=== PATIENT | male | born 1995 | race Caucasian/White ===

== ENCOUNTER 2016-12-13 06:18 | Emergency (ER) | payer BC ==
[~2016-12-13] VITALS: Ht 177.8 cm; Wt 83.9 kg
[2016-12-13 06:23] VITALS: TEMP 37.2; Ht 177.8 cm; Wt 83.9 kg
[2016-12-13] MEDS ORDERED: CLINDAMYCIN IV 900 MG in DEXTROSE 5% ADD-VANTAGE 100ML 100 ML IV ONE (07:00)
[2016-12-13] MEDS ORDERED: OPTIRAY 320 IV PRN (07:30)
--- NOTE | 2016-12-13 07:51 | DIAGNOSTIC IMAGING REPORT ---
CT maxillofacial region FACIAL-MAXILLOFACIAL WITH CLINICAL HISTORY: swelling right lateral jaw/mandible area, under right ear pain. Edema. TECHNIQUE: Transaxial acquisition with multi axial reformatted images. COMPARISON STUDY: 08/28/2016 FINDINGS: Generalized cellulitis extending from the soft tissues anterior to the right external auditory canal inferiorly to the right submandibular region. Possible mild secondary sialoadenitis involving the inferior right parotid gland. Osseous structures appear to be intact. Moderate mucosal thickening of the ethmoid and maxillary sinuses. No bony destructive process. No evidence for drainable abscess or collection. Mild reactive cervical adenitis. IMPRESSION: 1. Moderate cellulitis of the subcutaneous tissues and fascial planes of the right lateral facial region extending from the right external auditory canal to the level of the right submandibular region. 2. Possible mild secondary sialoadenitis involving the inferior right parotid gland. 3. No evidence for a drainable abscess or collection. 4. Moderate chronic sinus change. Electronically signed by: Deshaun Londono M.D. 12/13/2016 7:49 AM Dictated Date/Time: 12/13/2016 7:45 AM
[2016-12-13] MEDS ORDERED: OXYCODONE/ACETAMINOPHEN 5-325 TAB PO ONE (08:30)
[2016-12-13] MEDS ORDERED: CLIN300C2 PO (08:39)
[2016-12-13] MEDS ORDERED: OXYC-57 PO (08:39)
--- NOTE | 2016-12-13 08:41 | EMERGENCY ROOM VISIT NOTE ---
History Report prepared by Barrie: Naeem Garcia Under the Supervision of: Dr. José Miguel Powers D.O. First contact with patient: 06:56 Chief Complaint: SINUS CONGESTION/PRESSURE Stated Complaint: SINUS PRESSURE,SWOLLEN JAW,COUGHING Nursing Triage Summary: yesterday had sinus congestion. took allergy medication. today woke with R side of his jaw swollen. History of Present Illness The patient is a 21 year old male who presents to the Emergency Room with complaints of persistent sinus pressure beginning yesterday. He notes this morning he woke up with a swollen jaw. He adds that he has been weak and achy, and admits to having a mild fever of around 99, cough, and ear pain. He denies having any dental pain. The patient reports worsening of his pain upon opening his mouth. Source of History: patient Onset: yesterday Position: other (sinuses) Quality: ache, pressure Timing: other (persistent) Associated Symptoms: + cough, + fevers (mild; 99), + weakness Note: The patient reports having a swollen jaw worsening with opening his mouth, and ear pain. The patient denies having dental pain. Review of Systems See HPI for pertinent positives & negatives. A total of 10 systems reviewed and were otherwise negative. Past Medical & Surgical Medical Problems: (1) Alcohol intoxication Family History Patient reports no known family medical history. Social History Smoking Status: Never Smoker Alcohol Use: occasionally Drug Use: none Occupation Status: [employer] student Current/Historical Medications Scheduled Clindamycin Hcl (Cleocin), 300 MG PO QID Scheduled PRN Oxycodone/Acetaminophen 5MG/325MG (Percocet 5MG/325MG), 1 TAB PO Q6H PRN for Pain Allergies Coded Allergies: Penicillins (Verified Allergy, Intermediate, rash, 12/13/16) Sulfa Antibiotics (Verified Allergy, Unknown, rash, 12/13/16) Physical Exam Vital Signs Date Time Temp Pulse Resp B/P Pulse Ox O2 Delivery O2 Flow Rate FiO2 12/13/16 08:12 104 140/85 97 Room Air 12/13/16 06:23 37.2 101 20 142/88 95 Room Air Physical Exam CONSTITUTIONAL/VITAL SIGNS: Reviewed / noted above. GENERAL: Non-toxic in appearance. INTEGUMENTARY: Warm, dry, and [place]. HEAD: Normocephalic. Swelling to the right lateral mandibular area inferior to the right ear. EYES: without scleral icterus or trauma. ENT/OROPHARYNX: clear and moist. LYMPHADENOPATHY/NECK: Is supple without lymphadenopathy or meningismus. RESPIRATORY: Lungs clear and equal. CARDIOVASCULAR: Regular rate and rhythm. GI/ABDOMEN: Soft and nontender. No organomegaly or pulsatile mass. No rebound or guarding. Normal bowel sounds. EXTREMITIES: Warm and well perfused. BACK: No CVA tenderness. NEUROLOGICAL: Intact without focal deficits. PSYCHIATRIC: normal affect. MUSCULOSKELETAL: Normally developed with good muscle tone. Medical Decision & Procedures ER Provider Diagnostic Interpretation: CT results as stated below per my review and radiologist interpretation: CT maxillofacial region FACIAL-MAXILLOFACIAL WITH FINDINGS: Generalized cellulitis extending from the soft tissues anterior to the right external auditory canal inferiorly to the right submandibular region. Possible mild secondary sialoadenitis involving the inferior right parotid gland. Osseous structures appear to be intact. Moderate mucosal thickening of the ethmoid and maxillary sinuses. No bony destructive process. No evidence for drainable abscess or collection. Mild reactive cervical adenitis. IMPRESSION: 1. Moderate cellulitis of the subcutaneous tissues and fascial planes of the right lateral facial region extending from the right external auditory canal to the level of the right submandibular region. 2. Possible mild secondary sialoadenitis involving the inferior right parotid gland. 3. No evidence for a drainable abscess or collection. 4. Moderate chronic sinus change. Electronically signed by: Deshaun Londono M.D. 12/13/2016 7:49 AM Dictated Date/Time: 12/13/2016 7:45 AM Medications Administered Medications (Trade) Dose Ordered Sig/Moe Route Start Time Stop Time Status Last Admin Dose Admin Clindamycin Phosphate/Dextrose (Cleocin Iv/ Dextrose Add-[place] 100ML) 106 ml @ 100 mls/hr ONE ONCE IV 12/13/16 07:00 12/13/16 08:03 DC 12/13/16 07:26 100 MLS/HR Oxycodone/ Acetaminophen (Percocet 5-325mg Tab) 1 tab NOW ONCE PO 12/13/16 08:30 12/13/16 08:31 DC 12/13/16 08:42 1 TAB ED Course 0657: Previous medical records were reviewed. The patient was evaluated in room A2. A complete history and physical examination was performed. 0700: Ordered Clindamycin Phosphate 900 mg/Dextrose 106 ml @ 100 mls/hr IV. 0830: Ordered Oxycodone/Acetaminophen 1 tab PO. 0840: On reevaluation, the patient is doing well. I discussed the results and findings with the patient. He verbalized agreement of the treatment plan. The patient was discharged home. Medical Decision Differential diagnosis: Etiologies such as cellulitis, abscess, MRSA infection, DVT, necrotizing fasciitis, dermatitis, drug eruption, as well as others were entertained.. This is a 21-year-old male who presents to the ED with a chief complaint of swelling to the right facial region. The patient symptoms started this morning. He states that he has had some upper respiratory infection symptoms over the past few days. His vital signs are stable. He is afebrile. He has some tenderness and swelling to the right facial region in the area just inferior to the right ear and lateral jaw. There is minimal erythema. Intraorally there is no obvious abnormalities. His dentition is intact. He denies any dental symptoms. Denies any difficulty swallowing or trouble breathing. Right external auditory canal is clear. CT scan suggests moderate cellulitis of the subcutaneous tissues and fascial planes of the right lateral face. The patient was given clindamycin IV. He was given a Percocet for pain. He'll be discharged on clindamycin and given a prescription for Percocet for pain. Follow-up in 1-2 days for recheck. Impression Primary Impression: Cellulitis, face Scribe Attestation The scribe's documentation has been prepared under my direction and personally reviewed by me in its entirety. I confirm that the note above accurately reflects all work, treatment, procedures, and medical decision making performed by me. Departure Information Dispostion Home / Self-Care Prescriptions Oxycodone/Acetaminophen 5MG/325MG (PERCOCET 5MG/325MG) Tab 1 TAB PO Q6H Y for Pain, #10 TAB Prov: José Miguel Powers D.O. 12/13/16 Clindamycin Hcl (CLEOCIN) 300 Mg Cap 300 MG PO QID, #40 CAP Prov: José Miguel Powers D.O. 12/13/16 Referrals No Doctor, Assigned (PCP) Patient Instructions Cellulitis Mi, My [facility] Additional Instructions Clindamycin as prescribed. Follow-up with your doctor for recheck in 1-2 days. Return for worsening. Percocet as prescribed. No driving within 6 hours of use. Do not take additional Tylenol while taking Percocet.
[2016-12-13 08:54] VITALS: BP 142/84; PULSE 86; O2SAT 99
[2016-12-16] MEDS ORDERED: OXYC-57 PO (12:07)
[2016-12-16] MEDS ORDERED: CLIN300C2 PO (12:07)
== END 2016-12-13 08:55 | disposition home or self-care (01) ==
LOC: C.EDB 06:20 → C.EDA 08:55
DX: L03.211 Cellulitis of face (principal)

== ENCOUNTER 2016-12-15 09:25 | Inpatient (IN) | payer BC ==
[~2016-12-15] VITALS: Ht 177.8 cm; Wt 82.1 kg
[~2016-12-15 09:25] MED LIST: CLIN300C2 PO; OXYC-57 PO
[2016-12-15] MEDS ORDERED: ONDANSETRON INJ 2 MG/ML 2 ML VIAL IV STA (10:35)
[2016-12-15] MEDS ORDERED: MoRPHine SULFATE 4 MG/ML 1 ML CARP\\VIAL IV STA (10:35)
[2016-12-15] MEDS ORDERED: SODIUM CHLORIDE 0.9% 1000ML 1,000 ML IV STA (10:37)
[2016-12-15] MEDS ORDERED: CLINDAMYCIN IV 900 MG in DEXTROSE 5% ADD-VANTAGE 100ML 100 ML IV ONE (11:00)
[2016-12-15 11:22] LABS: BASO % 0.6 %; BASO ABS # 0.03 K/uL (0-0.2); COMPLETE YES; EOS % 1.5 %; HEMATOCRIT 44.1 % (42-52); IG% 0.2 %; LYMPH % 27.4 %; LYMPH ABS # 1.32 K/uL (1.2-3.4); MEAN CELL VOLUME 90.2 fL (80-100); MEAN CORPUSCULAR HEMOGLOBIN 31.7 pg (25-34); MEAN CORPUSCULAR HGB CONC 35.1 g/dl (32-36); MEAN PLATELET VOLUME 9.9 fL (7.4-10.4); MONO % 18.5 %; NEUT % 51.8 %; PLATELET COUNT 194 K/uL (130-400); RED BLOOD COUNT 4.89 M/uL (4.7-6.1); WHITE BLOOD COUNT 4.81 K/uL (4.8-10.8)
[2016-12-15 11:42] LABS: BUN/CREATININE RATIO 9.4 (10-20); CALCIUM 8.8 mg/dl (8.5-10.1); CREATININE 0.86 mg/dl (0.60-1.40); POTASSIUM 4.4 mmol/L (3.5-5.1)
[2016-12-15] MEDS ORDERED: MoRPHine SULFATE 2 MG/ML CARP IV PRN (12:15)
[2016-12-15] MEDS ORDERED: ONDANSETRON INJ 2 MG/ML 2 ML VIAL IV PRN (12:15)
[2016-12-15] MEDS ORDERED: MoRPHine SULFATE 4 MG/ML 1 ML CARP\\VIAL IV PRN (12:15)
[2016-12-15 12:26] VITALS: O2SAT 98
[2016-12-15] MEDS ORDERED: ACETAMINOPHEN 500 MG TAB PO PRN (12:30)
[2016-12-15 13:20] VITALS: BP 145/83; PULSE 63; TEMP 36.8; O2SAT 96
--- NOTE | 2016-12-15 13:27 | HISTORY & PHYSICAL EXAMINATION ---
DATE OF ADMISSION: 12/15/2016 CHIEF COMPLAINT: Facial pain. ADMITTING DIAGNOSIS: Facial cellulitis, failing outpatient treatment. 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 The patient feels it originated in his right maxillary sinus. The patient presented to the ER. At that point in time, he underwent a CT scan of his face facial cellulitis. Because of allergies to penicillin and sulfa which are significant skin reactions requiring ER visits, the patient was begun on oral clindamycin. Despite being on oral clindamycin, his swelling, pain and tenderness progressed, he represented tonight. Reportedly, the Emergency Room physician, Dr. Clinton Cisneros contacted Dr. Geovanny Maki, an ENT on-call who felt that patient should be admitted to the facility, continued on IV antibiotics and believe clindamycin is an appropriate choice. After that discussion, hospitalists were called and we recommended to admit the patient. On my evaluation, the patient is in mild distress with some facial pain. He is however able to talk, guard his airway. He has no stridorous voice, no hot potato mouth voice and is able to swallow his own saliva without difficulty. PAST MEDICAL HISTORY: The patient really has no significant past medical history. He was in the ER at one point in the distant past for alcohol related. DAILY MEDICATIONS: None. ALLERGIES: MENTIONED, PENICILLIN AND SULFA. SOCIAL HISTORY: Does not smoke at all. He drinks occasionally. 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 FAMILY HISTORY: Positive for malignancies in his grandparents. He is not exactly sure of the exact kind. MEDICATIONS: As mentioned, daily medications are none. His only medication was recently prescribed clindamycin 300 q.i.d. with p.r.n. Percocet for pain. REVIEW OF SYSTEMS: Ten systems are reviewed and are negative with the exception of his facial pain listed to be 8/10, listed to be pressure and also sharp, radiating to his lower ear and along his jaw. He does have difficulty opening his mouth widely. Nothing makes the pain get better or worse. Other than that, 10 systems are reviewed and are negative. PHYSICAL EXAMINATION: VITAL SIGNS: Completely stable. Afebrile at 36.7, pulse 60, respirations 16, BP 145/100 which is slightly high but he is anxious. Oxygen sats 96. HEENT: PERRL, EOMI. His oropharynx, I see no evidence of dental caries, periodontal disease or evidence of any type of issue around his parotid duct. His left face has swelling, it is not erythematous. It has firmness to it, it is not warm. His TMs are equal bilaterally without remark. His nasal mucosa is boggy and indurated. His right maxillary sinus is tender to percussion. NECK: Without lymphadenopathy, JVD. Trachea is midline. No stridor. HEART: Regular without murmurs, clicks, rubs or gallops. LUNGS: Clear without wheezes or crackles. Good air movement. ABDOMEN: Normoactive bowel sounds, soft, nontender, nondistended. EXTREMITIES: Without cyanosis, clubbing or edema. NEUROLOGICAL: Awake, alert and appropriate. Cranial nerves II-XII are intact. Equal symmetrical strength and sensation. SKIN: Without lesions, growth, bruises or bleeding nor any significant redness over the affected area. LABORATORY DATA: As mentioned, has a white count of 4.8, H\T\H is 15 and 44, platelet count is normal. BUN and creatinine of 8 and 0.86. He has a CT scan from the 5th which showed facial cellulitis with nondrainable fluid collection. ASSESSMENT: A 21-year-old male, here with a facial cellulitis, failing outpatient treatment. PLAN: Because of patient's allergies, he will be maintained on intravenous clindamycin at high dose. ENT consult and he will be evaluated in case any further imaging study is warranted. Of course, alternatives in addition to this would be parotid gland concretion or obstruction, nothing is mentioned except some sialoadenitis of the right parotid gland. There is no evidence of any concretion seen. Pain control will be via parenteral opiates. DVT prevention is ambulation. MTDD
[2016-12-15] MEDS: SODIUM CHLORIDE 0.9% 1000ML 1,000 ML IV SCH ×2 (14:19→23:51)
[2016-12-15] MEDS: OXYCODONE HCL IR 5 MG TAB (IMMEDIATE RELEASE) PO PRN ×2 (14:33→20:01)
[2016-12-15 14:37] VITALS: Ht 177.8 cm; Wt 82.1 kg
--- NOTE | 2016-12-15 17:20 | EMERGENCY ROOM VISIT NOTE ---
History Report prepared by Barrie: Elvia Delgadillo Under the Supervision of: Dr. Clinton Cisneros M.D. First contact with patient: 10:23 Chief Complaint: INFECTION Stated Complaint: INFECTION IN JAW/GLAND-NOT GETTING BETTER Nursing Triage Summary: See triage note History of Present Illness The patient is a 21 year old male who presents to the Emergency Room with complaints of persistent, worsening right facial swelling and pain that began Wednesday. He currently rates his discomfort as an 8/10 in severity. The patient states that Wednesday he noticed sinus pressure. He states that Wednesday morning he noticed the swelling to his right jaw and states that by Wednesday morning it was much worse. The patient states that he was evaluated in the emergency department and after several tests he was placed on Clindamycin for the infection and Percocet for his pain. He states that his pain and edema has worsened and states that he is now in excruciating pain. The patient states that he feels the edema spreading down further and states that the area feels harder. He states that the edema has increased by approximately 50%. The patient states that he does not currently have a PCP noting that he is a student. He states that he notices his pain is worse in the morning after lying flat all night. The patient states that he ran out of Percocet yesterday. He denies any active medical problems. The patient denies any rash , fever, chest pain, abdominal pain, or vomiting. Source of History: patient Onset: Wednesday Position: other (facial) Symptom Intensity: 8/10 Quality: other (swelling) Timing: worsening, other (persistent) Associated Symptoms: No abdominal pain, No chest pain, No fevers, No rash, No vomiting Review of Systems See HPI for pertinent positives & negatives. A total of 10 systems reviewed and were otherwise negative. Past Medical & Surgical Medical Problems: (1) Alcohol intoxication (2) facial cellulitis failing outpt therapy Family History Cancer Social History Smoking Status: Never Smoker Alcohol Use: occasionally Drug Use: none Occupation Status: [employer] student Current/Historical Medications Scheduled Clindamycin Hcl (Cleocin), 300 MG PO QID Allergies Coded Allergies: Penicillins (Verified Allergy, Intermediate, rash, 12/15/16) Sulfa Antibiotics (Verified Allergy, Unknown, rash, 12/15/16) Physical Exam Vital Signs Date Time Temp Pulse Resp B/P Pulse Ox O2 Delivery O2 Flow Rate FiO2 12/15/16 09:27 36.7 60 16 145/101 96 Room Air Physical Exam Constitutional: Vital signs reviewed. Eyes: Pupils are equal round reactive to light. Conjunctiva are noninjected. ENT: Diffuse swelling to the right side of his lower jaw. No signs of otitis media or maxillary sinus tenderness. No induration or fluctuance. No submandibular swelling or firmness. No elevation of tongue, truisms, or peritonsillar abscess. No percussion tenderness to the upper or lower teeth on the right side. Mucous membranes are moist. Respiratory: Clear to auscultation bilaterally. Breath sounds are equal bilaterally. Cardiovascular: Regular rate and rhythm. No rubs or gallops. GI: Soft, nondistended and nontender. Bowel sounds are present. Musculoskeletal: No peripheral edema. Integumentary: As above. Neurological: The patient is awake and alert. No focal deficits. Psychiatric: Normal affect. Medical Decision & Procedures Laboratory Results 12/15/16 11:00 Red Blood Count 4.89, Mean Corpuscular Volume 90.2, Mean Corpuscular Hemoglobin 31.7, Mean Corpuscular Hemoglobin Concent 35.1, Mean Platelet Volume 9.9, Neutrophils (%) (Auto) 51.8, Lymphocytes (%) (Auto) 27.4, Monocytes (%) (Auto) 18.5, Eosinophils (%) (Auto) 1.5, Basophils (%) (Auto) 0.6, Neutrophils # (Auto ) 2.49, Lymphocytes # (Auto) 1.32, Monocytes # (Auto) 0.89, Eosinophils # (Auto ) 0.07, Basophils # (Auto) 0.03 12/15/16 11:00 Test 12/15/16 11:00 White Blood Count 4.81 K/uL (4.8-10.8) Red Blood Count 4.89 M/uL (4.7-6.1) Hemoglobin 15.5 g/dL (14.0-18.0) Hematocrit 44.1 % (42-52) Mean Corpuscular Volume 90.2 fL (80-100) Mean Corpuscular Hemoglobin 31.7 pg (25-34) Mean Corpuscular Hemoglobin Concent 35.1 g/dl (32-36) Platelet Count 194 K/uL (130-400) Mean Platelet Volume 9.9 fL (7.4-10.4) Neutrophils (%) (Auto) 51.8 % Lymphocytes (%) (Auto) 27.4 % Monocytes (%) (Auto) 18.5 % Eosinophils (%) (Auto) 1.5 % Basophils (%) (Auto) 0.6 % Neutrophils # (Auto) 2.49 K/uL (1.4-6.5) Lymphocytes # (Auto) 1.32 K/uL (1.2-3.4) Monocytes # (Auto) 0.89 K/uL (0.11-0.59) Eosinophils # (Auto) 0.07 K/uL (0-0.5) Basophils # (Auto) 0.03 K/uL (0-0.2) RDW Standard Deviation 42.1 fL (36.4-46.3) RDW Coefficient of Variation 13.0 % (11.5-14.5) Immature Granulocyte % (Auto) 0.2 % Immature Granulocyte # (Auto) 0.01 K/uL (0.00-0.02) Anion Gap 7.0 mmol/L (3-11) Est Creatinine Clear Calc Drug Dose 139.1 ml/min Estimated GFR () 142.7 Estimated GFR (Non- 123.1 BUN/Creatinine Ratio 9.4 (10-20) Calcium Level 8.8 mg/dl (8.5-10.1) Laboratory results as reviewed by me. Medications Administered Medications (Trade) Dose Ordered Sig/Moe Route Start Time Stop Time Status Last Admin Dose Admin Morphine Sulfate (MoRPHine SULFATE INJ) 4 mg NOW STAT IV 12/15/16 10:35 12/15/16 10:37 DC 12/15/16 11:22 4 MG Ondansetron HCl 4 mg 4 mg NOW STAT IV 12/15/16 10:35 12/15/16 10:37 DC 12/15/16 11:22 4 MG Sodium Chloride 1,000 ml @ 999 mls/hr Q1H1M STAT IV 12/15/16 10:37 12/15/16 11:37 DC 12/15/16 11:21 999 MLS/HR Clindamycin Phosphate/Dextrose (Cleocin Iv/ Dextrose Add-[place] 100ML) 106 ml @ 100 mls/hr ONE ONCE IV 12/15/16 11:00 12/15/16 12:03 DC 12/15/16 11:21 100 MLS/HR Oxycodone HCl 10 mg 10 mg Q6 PRN PO 12/15/16 12:15 12/29/16 12:14 12/15/16 14:33 10 MG Sodium Chloride (Nss 1000ml) 1,000 ml @ 100 mls/hr Q10H IV 12/15/16 12:15 01/14/17 12:14 12/15/16 14:19 100 MLS/HR ED Course 1027: The patient was evaluated in room C8. A complete history and physical exam was performed. 1035: Ordered Zofran Inj 4 mg IV, Morphine Sulfate 4 mg IV. 1037: Ordered Sodium Chloride 1000 ml @ 999 mls/hr IV. 1049: I discussed the patients case with Dr. Maki, ENT. He agrees with admission and IV antibiotics. He would suggest Clindamycin at high dose and get ID involved. 1100: Ordered Clindamycin Phosphate 900 mg/Dextrose 106 ml @ 100 mls/hr IV. 1102: I reevaluated the patient and he is doing well. I discussed the treatment plan with him and he verbalized complete understanding and agreement. He will be evaluated for further treatment. 1152: I discussed the patients case with Dr. Stevens [facility]. He is going to evaluate the patient for further treatment. Medical Decision This is a 21-year-old male presents with facial pain and swelling. Differential diagnosis includes facial cellulitis, sialadenitis, sialolithiasis , abscess, dental abscess, Guero angina. I did perform a limited focused review of portions of the patient's old chart on the electronic medical record. The patient was seen here on the for facial pain and swelling. He had a CT scan which showed moderate cellulitis of the subq tissue and facial planes of the right face extending into the right external auditory canal to the level of the right submandibular region. Also possible mild secondary parotitis. I did evaluate the patient as noted above. The patient is presenting with worsening symptoms since his CT scan here 2 days ago. On examination he does not appear to have any signs of periapical abscess or dental injury. He denies having any dental pain. He has no submental pain or tenderness or elevation of the tongue to suggest Guero angina. He has no signs of peritonsillar abscess. IV access was established. IV blood cultures were obtained.I did order and review the patient's blood work as noted in the electronic medical record. I did discuss the case with Dr. Maki of ENT. He agreed with plan for hospitalization and recommended high-dose clindamycin and ID consultation. I did discuss case with the hospitalist and social work case manager. The patient was given clindamycin 900 mg IV. He was also given morphine and Zofran for pain. Consults Time Called: 1048 Consulting Physician: WAYNE Bernabe Returned Call: [phone] I discussed the patients case with WAYNE Bernabe. He agrees with admission and IV antibiotics. He would suggest Clindamycin at high dose and get ID involved. Additional Consults: Time Called: 1151 Consulted Physician: CAR Vaca Returned Call: [phone] Additional Comments: I discussed the patients case with CAR Vaca. He is going to evaluate the patient for further treatment. Impression Primary Impression: Facial cellulitis Additional Impressions: Sialadenitis Failure of outpatient treatment Scribe Attestation The scribe's documentation has been prepared under my direct and personally reviewed by me in its entirety. I confirm that the note above accurately reflects all work, treatment, procedures, and medical decision making performed by me. Departure Information Dispostion Being Evaluated By Hospitalist Referrals No Doctor, Assigned (PCP) Problem Qualifiers
[2016-12-15] MEDS: CLINDAMYCIN IV 900 MG in DEXTROSE 5% ADD-VANTAGE 100ML 100 ML IV SCH (20:00)
[2016-12-16 00:15] VITALS: BP 143/68; PULSE 63; TEMP 36.8; O2SAT 94
[2016-12-16] MEDS: CLINDAMYCIN IV 900 MG in DEXTROSE 5% ADD-VANTAGE 100ML 100 ML IV SCH ×2 (03:57→11:38)
[2016-12-16] MEDS: OXYCODONE HCL IR 5 MG TAB (IMMEDIATE RELEASE) PO PRN ×2 (04:00→11:39)
[2016-12-16 07:37] LABS: HEMATOCRIT 44.4 % (42-52); MEAN CELL VOLUME 90.6 fL (80-100); MEAN CORPUSCULAR HEMOGLOBIN 31.4 pg (25-34); MEAN CORPUSCULAR HGB CONC 34.7 g/dl (32-36); MEAN PLATELET VOLUME 10.3 fL (7.4-10.4); PLATELET COUNT 183 K/uL (130-400); WHITE BLOOD COUNT 4.36 K/uL (4.8-10.8)
[2016-12-16 07:53] LABS: BUN/CREATININE RATIO 7.5 (10-20); CALCIUM 8.8 mg/dl (8.5-10.1); CREATININE 0.88 mg/dl (0.60-1.40); POTASSIUM 4.2 mmol/L (3.5-5.1)
[2016-12-16 07:55] VITALS: BP 140/93; PULSE 58; TEMP 36.6; O2SAT 99
[2016-12-16] MEDS: SODIUM CHLORIDE 0.9% 1000ML 1,000 ML IV SCH (09:31)
[2016-12-16] MEDS ORDERED: OXYC-57 PO (12:07)
[2016-12-16] MEDS ORDERED: CLIN300C2 PO (12:07)
--- NOTE | 2016-12-16 12:08 | Discharge Instructions ---
Discharge Instructions Admission Reason for Admission: Facial Cellulitis Failing Outpt Therapy Discharge Discharge Diagnosis / Problem: facial cellulitis Discharge Goals Goal(s): Diagnostic testing, Therapeutic intervention Activity Recommendations Activity Limitations: resume your previous activity . Current Hospital Diet Patient's current hospital diet: Full Liquid Diet Discharge Diet Recommended Diet: Regular Diet (try soft food for easy chewing) Pending Studies Studies pending at discharge: yes List of pending studies: blood cultures Medical Emergencies . Who to Call and When: Medical Emergencies: If at any time you feel your situation is an emergency, please call 911 immediately. . Non-Emergent Contact Non-Emergency issues call your: Primary Care Provider ([facility]) Call Non-Emergent contact if: temperature is above 101, your pain is worsening . . "Provider Documentation" section prepared by Clinton Saldaña. VTE Core Measure Inpt VTE Proph given/why not?: Treatment not indicated
[2016-12-16 12:24] VITALS: BP 140/93; PULSE 58; TEMP 36.6; O2SAT 99
--- NOTE | 2016-12-16 16:03 | Discharge Summary ---
Discharge Summary Admission Date: Dec 15, 2016 at 12:19 Discharge Date: Dec 16, 2016 Discharge Disposition: Home Principal Diagnosis: facial cellulitis Procedures: facial CT no abscess but soft tissue changes consistent with cellulitis Consultations: Phone consultation with Dr Maki, did update him on 12/15 and 12/16, since had improved by 12/16 and no surgical intervention needed did not feel he should see patient Medication Reconciliation New Medications: Oxycodone/Acetaminophen 5MG/325MG (Percocet 5MG/325MG) Tab 1-2 TABLETS PO Q4H PRN for Pain, #20 TAB Continued Medications: Clindamycin Hcl (Cleocin) 300 Mg Cap 300 MG PO QID, #40 CAP (This prescription has been renewed) Discharge Exam Review of Systems: Constitutional: No fever Eyes: No eye pain, No worsening of vision ENT: + problem reported (left posterior cheek swelling), No dental problems , No nasal symptoms, No sore throat, No trouble swallowing Respiratory: No cough, No sputum Cardiovascular: No PND, No chest pain, No orthopnea Abdomen: No nausea, No pain, No vomiting Physical Exam: General Appearance: WD/WN, + mild distress Eyes: PERRL, EOMI ENT: hearing grossly normal, TMs normal, pharynx normal, + pertinent finding (swelling to left cheek) Neck: supple, no JVD Respiratory/Chest: chest non-tender, lungs clear, normal breath sounds Cardiovascular: regular rate, rhythm, no murmur Hospital Course 21-year-old male, here with a facial cellulitis, failing outpatient treatment. PT improved with IV clindamycin, still some pre auricular swelling but no sinus or teeth pain, will discharge home on po clindamycin and percocet for pain with follow up with [facility] Total Time Spent: Greater than 30 minutes This includes examination of the patient, discharge planning, medication reconciliation, and communication with other providers. Discharge Instructions Please refer to the electronic Patient Visit Report (Discharge Instructions) for additional information.
== END 2016-12-16 13:45 | disposition home or self-care (01) | DRG 603 ==
LOC: ENRESERVTM → ENRESERVDT → C.EDB 09:26 → C.MS4W 12:19
PROVIDERS: ADMIT Internal Medicine; ATTEND Internal Medicine
DX: L03.211 Cellulitis of face (principal); K11.20 Sialoadenitis, unspecified; Z86.59 Personal history of other mental and behavioral disorders